=== PATIENT | female | born 1990 | race Caucasian/White ===

== ENCOUNTER 2016-09-18 13:13 | Emergency (ER) | payer OTHER ==
[2016-09-18] MEDS ORDERED: IBUPROFEN 800 MG TAB As Ordered ONE (13:50)
--- NOTE | 2016-09-18 14:15 | REP ---
Clinical: Chest pain. Comparison: none. Technique: PA and lateral. Findings: The mediastinum and cardiac silhouette are normal. The lung villasenor are clear and without acute consolidation, effusion, or pneumothorax. The skeletal structures are intact and normal. Impression: 1. No acute cardiopulmonary process. Signed by Tristan Jarrell MD 09/18/2016 02:06 P
--- NOTE | 2016-09-18 14:44 | EDDOCDS ---
Nurse's Notes [facility] Name: Samia De Leon Age: 26 yrs Sex: Female : 1990 Arrival Date: 09/18/2016 Time: 13:13 Bed TR8 Private MD: No Pcp Diagnosis: Chest pain, unspecified-Chest Wall Pain Presentation: 09/18 13:16 Presenting complaint: Patient states: Substernal chest pain began a week ago. Aspirin mlb1 was not taken prior to arrival. Adult Sepsis Screening: The patient does not have new or worsening altered mentation. Patient's respiratory rate is less than 22. Systolic blood pressure is greater than 100. Patient has a qSOFA score of 0- Negative Sepsis Screen. Suicide/Homicide risk assessment- the patient denies having any suicidal and/or homicidal ideations and does not present with any other emotional, behavioral or mental health complaints. 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 Transition of care: patient was not received from another setting of care. 13:16 Acuity: CHRISTIANO Level 3 mlb1 13:16 Method Of Arrival: Walkin/Carried/Asstd mlb1 Triage Assessment: 13:18 General: Appears in no apparent distress, Behavior is appropriate for age, cooperative. mlb1 Pain: Location: mid-sternal area Pain currently is 4 out of 10 on a pain scale. HIV screening NA for this visit Offered previously. Historical: - Allergies: codeine (Hives); - Home Meds: 1. BCP 1 tab once daily - PMHx: none; - PSHx: none; - Social history: Smoking status: Patient uses tobacco products, light tobacco smoker. No barriers to communication noted, The patient speaks fluent Palestinian, Speaks appropriately for age. - Family history: Not pertinent. - : The pt / caregiver states he / she is not on anticoagulants. Home medication list is obtained from the patient. - Exposure Risk Screening:: None identified. Screenin:41 Screening information is obtained from the patient. Fall risk: No risks identified. ms18 Assistance ADL's: requires no assistance with activities of daily living. Abuse/DV Screen: The patient / caregiver reports he/she is: not in a situation that causes fear, pain or injury. Nutritional screening: No deficits noted. Advance Directives: There is no living will. home support is adequate. Assessment: 14:41 General: Appears in no apparent distress, comfortable, Behavior is appropriate for age, ms18 cooperative, pleasant. Pain: Location: chest and mid-sternal area Pain currently is 4 out of 10 on a pain scale. Neurological: Level of Consciousness is awake, alert, obeys commands, Oriented to person, place, time. Cardiovascular: Capillary refill < 3 seconds Heart tones S1 S2 Rhythm is sinus rhythm. Respiratory: No deficits noted. Derm: Skin is pink, warm & dry. Vital Signs: 13:15 BP 155 / 79; Pulse 87; Resp 16; Temp 97.3; Pulse Ox 100% ; Weight 90.72 kg; Height 5 cmb ft. 6 in. (167.64 cm); Pain 4/10; 14:41 BP 145 / 87; Pulse 84; Resp 18; Temp 98; Pulse Ox 99% ; Pain 4/10; ms18 13:15 Body Mass Index 32.28 (90.72 kg, 167.64 cm) cmb Vitals: 13:15 Log In Time: September 18, 2016 at 13:13. cmb ED Course: 13:14 Patient visited by Seble Burciaga. cmb 13:14 Patient moved to Waiting cmb 13:15 No Pcp is Private Physician. cmb 13:16 Patient visited by Omar Hendrickson, RN. mlb1 13:16 Patient moved to Pre RCE cmb 13:17 Triage Initiated mlb1 13:18 Patient visited by Omar Hendrickson, RN. mlb1 13:18 Patient moved to Triage 1 mlb1 13:22 Bradford Fernández PA-C is PHCP. dk1 13:22 Phillip Garcia MD is Attending Physician. dk1 13:22 Patient visited by Bradford Fernández PA-C. dk1 13:29 Patient moved to PD2 / ms18 13:45 Patient visited by Raisa Sommer. sew 13:45 EKG done. (by ED staff). Reviewed by Bradford Fernández PA-C. sew 13:52 Patient visited by Raisa Sommer. sew 14:02 D-Dimer Quant Sent. dem1 14:27 Chest, 2 View (pa\E\lat) Returned. EDMS 14:29 [place] [place] was scanned into [employer] and attached to record. mm15 14:31 Patient name changed from Samia\S\\S\Potter\S\ to Samia\S\ \S\Potter. EDMS 14:33 [facility] is Referral Physician. dk1 14:41 Patient moved to TR8 ms18 14:41 The patient / caregiver is instructed regarding the plan of care and ED course. Patient ms18 has correct armband on for positive identification. Cardiac monitoring not applicable on this patient. 14:41 No IV's were initiated during this patient's visit. No procedures done that require ms18 assistance. Administered Medications: 13:52 Drug: Ibuprofen 800 mg [ibuprofen 800 mg tablet (1 tabs)] Route: PO; ms18 Order Results: Lab Order: D-Dimer Quant; SPEC'M 09/18/16 14:00 Test: D-DIMER QUANT; Value: < 270.0; Range: <500; Units: ng/ml; Status: F Radiology Order: Chest, 2 View (pa\E\lat) Test: Chest, 2 View (pa\E\lat) REASON FOR EXAMINATION: Chest Pain; Clinical: Chest pain.; ; Comparison: none.; ; Technique: PA and lateral.; ; Findings:; The mediastinum and cardiac silhouette are normal. The lung villasenor are clear and; without acute consolidation, effusion, or pneumothorax. The skeletal structures; are intact and normal.; ; Impression:; 1. No acute cardiopulmonary process.; ; ; Signed by; Tristan Jarrell MD 09/18/2016 02:06 P; Outcome: 14:34 Discharge ordered by Provider. dk1 14:41 Discharge Assessment: Patient awake, alert and oriented x 3. No cognitive and/or ms18 functional deficits noted. Patient verbalized understanding of disposition instructions. patient administered narcotics - no. The following High Risk Discharge criteria are identified: None. Discharged to home ambulatory. Condition: good Condition: stable Condition: improved. Discharge instructions given to patient, Instructed on discharge instructions, follow up and referral plans. medication usage, Demonstrated understanding of instructions, medications, Pt was receptive of discharge instructions/ teaching. Prescriptions given X 2. No special radiology studies were completed. Property sent home with patient. :Personal belongings accompany Pt. 14:44 Patient left the ED. ms18 Signatures: Dispatcher [employer] Omar Albright RN RN mlb1 Bradford Fernández, PA-C PA-C adri1 Patricia Foote1 Seble Burciaga Sarah sew McGrath, Marlynn mm15 Candelaria Gallegos,CAITIE RN ms18 MTDD
--- NOTE | 2016-09-18 14:44 | EDDOCDS ---
Physician Documentation [facility] Name: Samia De Leon Age: 26 yrs Sex: Female : 1990 Arrival Date: 09/18/2016 Time: 13:13 Bed TR8 Private MD: No Pcp Disposition: 09/18/16 14:34 Discharged to Home/Self Care. Impression: Chest pain, unspecified - Chest Wall Pain. - Condition is Stable. - Discharge Instructions: Chest Wall Pain. - Prescriptions for Ibuprofen 800 mg Oral Tablet - take 1 tablet by ORAL route every 8 hours As needed take with food; 30 tablet. Tylenol 325 mg Oral Tablet - take 2 tablet by ORAL route every 6 hours as needed; 1 bottle. - Medication Reconciliation, Local Pharmacy Hours form. - [facility]; When: 1 - 2 days; Reason: Recheck today's complaints, Continuance of care. Follow up: Emergency Department; When: As needed; Reason: Worsening of conditions. - Problem is new. - Symptoms have improved. Historical: - Allergies: codeine (Hives); - Home Meds: 1. BCP 1 tab once daily - PMHx: none; - PSHx: none; - Social history: Smoking status: Patient uses tobacco products, light tobacco smoker. No barriers to communication noted, The patient speaks fluent Iraqi, Speaks appropriately for age. - Family history: Not pertinent. - : The pt / caregiver states he / she is not on anticoagulants. Home medication list is obtained from the patient. - Exposure Risk Screening:: None identified. Vital Signs: 09/18 13:15 BP 155 / 79; Pulse 87; Resp 16; Temp 97.3; Pulse Ox 100% ; Weight 90.72 kg / 200 lbs; cmb Height 5 ft. 6 in. (167.64 cm); Pain 4/10; 14:41 BP 145 / 87; Pulse 84; Resp 18; Temp 98; Pulse Ox 99% ; Pain 4/10; ms18 13:15 Body Mass Index 32.28 (90.72 kg, 167.64 cm) cmb MDM: 13:25 Ibuprofen 800 mg PO once ordered. dk1 13:25 ECG WITH READING ER PHYS+CARDIAG ordered. EDMS 13:26 Chest, 2 View (pa\E\lat) Ordered. EDMS 13:27 D-Dimer Quant Ordered. EDMS 14:21 Financial registration complete. mm15 14:29 [facility] Payment Agreement was scanned into [employer] and attached to record. mm15 14:29 D-Dimer Quant Reviewed. dk1 14:29 Chest, 2 View (pa\E\lat) Reviewed. dk1 Administered Medications: 13:52 Drug: Ibuprofen 800 mg [ibuprofen 800 mg tablet (1 tabs)] Route: PO; ms18 Signatures: Dispatcher [employer] EDMS Omar Hendrickson RN RN mlb1 Bradford Fernández, PA-C PA-C dk1 Nikole Richardson mm15 Candelaria Gallegos RN RN ms18 The chart was reviewed and I authenticate all verbal orders and agree with the evaluation and treatment provided.Attachments: 14:29 [facility] Payment Agreement mm15 MTDD
--- NOTE | 2016-09-18 18:09 | ECGEPIP ---
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
--- NOTE | 2016-09-20 15:45 | EDDOCDS ---
Physician Documentation [facility] Name: Samia De Leon Age: 26 yrs Sex: Female : 1990 Arrival Date: 09/18/2016 Time: 13:13 Bed TR8 Private MD: No Pcp Disposition: 09/18/16 14:34 Discharged to Home/Self Care. Impression: Chest pain, unspecified - Chest Wall Pain. - Condition is Stable. - Discharge Instructions: Chest Wall Pain. - Prescriptions for Ibuprofen 800 mg Oral Tablet - take 1 tablet by ORAL route every 8 hours As needed take with food; 30 tablet. Tylenol 325 mg Oral Tablet - take 2 tablet by ORAL route every 6 hours as needed; 1 bottle. - Medication Reconciliation, Local Pharmacy Hours form. - Follow up: [facility]; When: 1 - 2 days; Reason: Recheck today's complaints, Continuance of care. Follow up: Emergency Department; When: As needed; Reason: Worsening of conditions. - Problem is new. - Symptoms have improved. Historical: - Allergies: codeine (Hives); - Home Meds: 1. BCP 1 tab once daily - PMHx: none; - PSHx: none; - Social history: Smoking status: Patient uses tobacco products, light tobacco smoker. No barriers to communication noted, The patient speaks fluent Colombian, Speaks appropriately for age. - Family history: Not pertinent. - : The pt / caregiver states he / she is not on anticoagulants. Home medication list is obtained from the patient. - Exposure Risk Screening:: None identified. Vital Signs: 09/18 13:15 BP 155 / 79; Pulse 87; Resp 16; Temp 97.3; Pulse Ox 100% ; Weight 90.72 kg / 200 lbs; cmb Height 5 ft. 6 in. (167.64 cm); Pain 4/10; 14:41 BP 145 / 87; Pulse 84; Resp 18; Temp 98; Pulse Ox 99% ; Pain 4/10; ms18 13:15 Body Mass Index 32.28 (90.72 kg, 167.64 cm) cmb MDM: 13:25 Ibuprofen 800 mg PO once ordered. dk1 13:25 ECG WITH READING ER PHYS+CARDIAG ordered. EDMS 13:26 Chest, 2 View (pa\E\lat) Ordered. EDMS 13:27 D-Dimer Quant Ordered. EDMS 14:21 Financial registration complete. mm15 14:29 [facility] Payment Agreement was scanned into [employer] and attached to record. mm15 14:29 D-Dimer Quant Reviewed. dk1 14:29 Chest, 2 View (pa\E\lat) Reviewed. dk1 16:57 T-Sheet-- Draft Copy was scanned into [employer] and attached to record. klr Administered Medications: 13:52 Drug: Ibuprofen 800 mg [ibuprofen 800 mg tablet (1 tabs)] Route: PO; ms18 Signatures: Dispatcher [employer] EDMS Omar Hendrickson RN RN mlb1 Bradford Fernández, PA-C PA-C dk1 Nikole Richardson mm15 Candelaria Gallegos RN RN ms18 Marija Mayers klr The chart was reviewed and I authenticate all verbal orders and agree with the evaluation and treatment provided.Attachments: 14:29 [facility] Payment Agreement mm15 16:57 T-Sheet-- Draft Copy klr Chart Complete MTDD
--- NOTE | 2016-09-20 15:45 | EDDOCDS ---
Physician Documentation [facility] Name: Samia De Leon Age: 26 yrs Sex: Female : 1990 Arrival Date: 09/18/2016 Time: 13:13 Bed TR8 Private MD: No Pcp Disposition: 09/18/16 14:34 Discharged to Home/Self Care. Impression: Chest pain, unspecified - Chest Wall Pain. - Condition is Stable. - Discharge Instructions: Chest Wall Pain. - Prescriptions for Ibuprofen 800 mg Oral Tablet - take 1 tablet by ORAL route every 8 hours As needed take with food; 30 tablet. Tylenol 325 mg Oral Tablet - take 2 tablet by ORAL route every 6 hours as needed; 1 bottle. - Medication Reconciliation, Local Pharmacy Hours form. - Follow up: [facility]; When: 1 - 2 days; Reason: Recheck today's complaints, Continuance of care. Follow up: Emergency Department; When: As needed; Reason: Worsening of conditions. - Problem is new. - Symptoms have improved. Historical: - Allergies: codeine (Hives); - Home Meds: 1. BCP 1 tab once daily - PMHx: none; - PSHx: none; - Social history: Smoking status: Patient uses tobacco products, light tobacco smoker. No barriers to communication noted, The patient speaks fluent Uruguayan, Speaks appropriately for age. - Family history: Not pertinent. - : The pt / caregiver states he / she is not on anticoagulants. Home medication list is obtained from the patient. - Exposure Risk Screening:: None identified. Vital Signs: 09/18 13:15 BP 155 / 79; Pulse 87; Resp 16; Temp 97.3; Pulse Ox 100% ; Weight 90.72 kg / 200 lbs; cmb Height 5 ft. 6 in. (167.64 cm); Pain 4/10; 14:41 BP 145 / 87; Pulse 84; Resp 18; Temp 98; Pulse Ox 99% ; Pain 4/10; ms18 13:15 Body Mass Index 32.28 (90.72 kg, 167.64 cm) cmb MDM: 13:25 Ibuprofen 800 mg PO once ordered. dk1 13:25 ECG WITH READING ER PHYS+CARDIAG ordered. EDMS 13:26 Chest, 2 View (pa\E\lat) Ordered. EDMS 13:27 D-Dimer Quant Ordered. EDMS 14:21 Financial registration complete. mm15 14:29 [facility] Payment Agreement was scanned into [employer] and attached to record. mm15 14:29 D-Dimer Quant Reviewed. dk1 14:29 Chest, 2 View (pa\E\lat) Reviewed. dk1 16:57 T-Sheet-- Draft Copy was scanned into [employer] and attached to record. klr Administered Medications: 13:52 Drug: Ibuprofen 800 mg [ibuprofen 800 mg tablet (1 tabs)] Route: PO; ms18 Signatures: Dispatcher [employer] EDMS Omar Hendrickson RN RN mlb1 Bradford Fernández, PA-C PA-C dk1 Nikole Richardson mm15 Candelaria Gallegos RN RN ms18 Marija Mayers klr The chart was reviewed and I authenticate all verbal orders and agree with the evaluation and treatment provided.Attachments: 14:29 [facility] Payment Agreement mm15 16:57 T-Sheet-- Draft Copy klr Chart Complete MTDD
--- NOTE | 2016-09-20 15:45 | EDDOCDS ---
Nurse's Notes [facility] Name: Cherrie De Leon Age: 26 yrs Sex: Female : 1990 Arrival Date: 09/18/2016 Time: 13:13 Bed TR8 Private MD: No Pcp Diagnosis: Chest pain, unspecified-Chest Wall Pain Presentation: 09/18 13:16 Presenting complaint: Patient states: Substernal chest pain began a week ago. Aspirin mlb1 was not taken prior to arrival. Adult Sepsis Screening: The patient does not have new or worsening altered mentation. Patient's respiratory rate is less than 22. Systolic blood pressure is greater than 100. Patient has a qSOFA score of 0- Negative Sepsis Screen. Suicide/Homicide risk assessment- the patient denies having any suicidal and/or homicidal ideations and does not present with any other emotional, behavioral or mental health complaints. 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 Transition of care: patient was not received from another setting of care. 13:16 Acuity: CHRISTIANO Level 3 mlb1 13:16 Method Of Arrival: Walkin/Carried/Asstd mlb1 Triage Assessment: 13:18 General: Appears in no apparent distress, Behavior is appropriate for age, cooperative. mlb1 Pain: Location: mid-sternal area Pain currently is 4 out of 10 on a pain scale. HIV screening NA for this visit Offered previously. Historical: - Allergies: codeine (Hives); - Home Meds: 1. BCP 1 tab once daily - PMHx: none; - PSHx: none; - Social history: Smoking status: Patient uses tobacco products, light tobacco smoker. No barriers to communication noted, The patient speaks fluent Togolese, Speaks appropriately for age. - Family history: Not pertinent. - : The pt / caregiver states he / she is not on anticoagulants. Home medication list is obtained from the patient. - Exposure Risk Screening:: None identified. Screenin:41 Screening information is obtained from the patient. Fall risk: No risks identified. ms18 Assistance ADL's: requires no assistance with activities of daily living. Abuse/DV Screen: The patient / caregiver reports he/she is: not in a situation that causes fear, pain or injury. Nutritional screening: No deficits noted. Advance Directives: There is no living will. home support is adequate. Assessment: 14:41 General: Appears in no apparent distress, comfortable, Behavior is appropriate for age, ms18 cooperative, pleasant. Pain: Location: chest and mid-sternal area Pain currently is 4 out of 10 on a pain scale. Neurological: Level of Consciousness is awake, alert, obeys commands, Oriented to person, place, time. Cardiovascular: Capillary refill < 3 seconds Heart tones S1 S2 Rhythm is sinus rhythm. Respiratory: No deficits noted. Derm: Skin is pink, warm & dry. Vital Signs: 13:15 BP 155 / 79; Pulse 87; Resp 16; Temp 97.3; Pulse Ox 100% ; Weight 90.72 kg; Height 5 cmb ft. 6 in. (167.64 cm); Pain 4/10; 14:41 BP 145 / 87; Pulse 84; Resp 18; Temp 98; Pulse Ox 99% ; Pain 4/10; ms18 13:15 Body Mass Index 32.28 (90.72 kg, 167.64 cm) cmb Vitals: 13:15 Log In Time: September 18, 2016 at 13:13. cmb ED Course: 13:14 Patient visited by Seble Burciaga. cmb 13:14 Patient moved to Waiting cmb 13:15 No Pcp is Private Physician. cmb 13:16 Patient visited by Oamr Hendrickson, RN. mlb1 13:16 Patient moved to Pre RCE cmb 13:17 Triage Initiated mlb1 13:18 Patient visited by Omar Hendrickson, RN. mlb1 13:18 Patient moved to Triage 1 mlb1 13:22 Trina Fernández PA-C is PHCP. dk1 13:22 Phillip Garcia MD is Attending Physician. dk1 13:22 Patient visited by Trina Fernández PA-C. dk1 13:29 Patient moved to PD2 / ms18 13:45 Patient visited by Raisa Sommer. sew 13:45 EKG done. (by ED staff). Reviewed by Trina Fernández PA-C. sew 13:52 Patient visited by Raisa Sommer. sew 14:02 D-Dimer Quant Sent. dem1 14:27 Chest, 2 View (pa\E\lat) Returned. EDMS 14:29 [facility] [place] was scanned into [employer] and attached to record. mm15 14:31 Patient name changed from Cherrie\S\\S\Potter\S\ to Cherrie\S\ \S\Potter. EDMS 14:33 [facility] is Referral Physician. dk1 14:41 Patient moved to TR8 ms18 14:41 The patient / caregiver is instructed regarding the plan of care and ED course. Patient ms18 has correct armband on for positive identification. Cardiac monitoring not applicable on this patient. 14:41 No IV's were initiated during this patient's visit. No procedures done that require ms18 assistance. 16:57 T-Sheet-- Draft Copy was scanned into [employer] and attached to record. klr 18:38 EKG-ADULT Returned. EDMS Administered Medications: 13:52 Drug: Ibuprofen 800 mg [ibuprofen 800 mg tablet (1 tabs)] Route: PO; ms18 Order Results: Lab Order: D-Dimer Quant; SPEC'M 09/18/16 14:00 Test: D-DIMER QUANT; Value: < 270.0; Range: <500; Units: ng/ml; Status: F Radiology Order: Chest, 2 View (pa\E\lat) Test: Chest, 2 View (pa\E\lat) REASON FOR EXAMINATION: Chest Pain; Clinical: Chest pain.; ; Comparison: none.; ; Technique: PA and lateral.; ; Findings:; The mediastinum and cardiac silhouette are normal. The lung villasenor are clear and; without acute consolidation, effusion, or pneumothorax. The skeletal structures; are intact and normal.; ; Impression:; 1. 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 dk1 14:41 Discharge Assessment: Patient awake, alert and oriented x 3. No cognitive and/or ms18 functional deficits noted. Patient verbalized understanding of disposition instructions. patient administered narcotics - no. The following High Risk Discharge criteria are identified: None. Discharged to home ambulatory. Condition: good Condition: stable Condition: improved. Discharge instructions given to patient, Instructed on discharge instructions, follow up and referral plans. medication usage, Demonstrated understanding of instructions, medications, Pt was receptive of discharge instructions/ teaching. Prescriptions given X 2. No special radiology studies were completed. Property sent home with patient. :Personal belongings accompany Pt. 14:44 Patient left the ED. ms18 Signatures: Dispatcher [employer] EDMS Omar Hendrickson RN RN mlb1 Trina Fernández, PA-C PA-C dk1 Patricia Foote1 Seble Burciaga Sarah sew McGrath, Marlynn mm15 Candelaria Gallegos,CAITIE RN ms18 Marija Mayers Chart Complete MTDD
== END 2016-09-18 14:44 | disposition home or self-care (01) ==
LOC: M ED 13:13
DX: R07.89 Other chest pain (principal); Z88.5 Allergy status to narcotic agent; F17.210 Nicotine dependence, cigarettes, uncomplicated

== ENCOUNTER 2017-09-02 11:11 | Emergency (ER) | payer OTHER ==
[2017-09-02] MEDS: NORCO, ANEXSIA 5/325MG TABLET (HYDROcodone/ACETAMINOPHEN) PO (12:46)
== END 2017-09-02 12:59 | disposition home or self-care (01) ==
LOC: M ED 11:11
DX: K04.7 Periapical abscess without sinus (principal); K02.9 Dental caries, unspecified; L03.211 Cellulitis of face; F17.200 Nicotine dependence, unspecified, uncomplicated; Z88.5 Allergy status to narcotic agent
CPT/HCPCS: 99282

== ENCOUNTER 2018-07-06 16:12 | Emergency (ER) | payer OTHER | END 2018-07-06 17:00 | disposition home or self-care (01) | LOC: M ED 16:12 | DX: K04.7 Periapical abscess without sinus (principal); R68.84 Jaw pain; K08.89 Other specified disorders of teeth and supporting structures; Z79.899 Other long term (current) drug therapy; Z88.5 Allergy status to narcotic agent | CPT/HCPCS: 99282 ==

== ENCOUNTER 2019-09-20 10:18 | Emergency (ER) | payer MEDICAID, OTHER ==
[~2019-09-20] VITALS: Ht 167.6 cm; Wt 99.7 kg
[~2019-09-20 10:18] MED LIST: CLEO300C2 PO; HYDR-3715 PO; LEVOTAB18; PENI500T PO
[2019-09-20] MEDS ORDERED: ONDANSETRON 4 MG ORAL DISINTEGRATING TAB (Q0162 PER 1MG) PO ONE (10:45)
[2019-09-20] MEDS ORDERED: PANTOPRAZOLE 40MG TAB (PROTONIX) PO ONE (10:45)
[2019-09-20 10:58] LABS: BASO % 0.3 % (0.0-1.0); EOS # 0.1 10^3/uL (0.0-0.5); EOS % 0.6 % (0.0-3.0); HEMOGLOBIN 13.8 g/dl (12.0-15.5); LYMPH # 2.5 10^3/uL (1.5-5.0); LYMPH % 27.7 % (24.0-44.0); MEAN CORPUSCULAR HEMOGLOBIN 27.9 pg (27.0-33.0); MEAN CORPUSCULAR HGB CONC 32.9 g/dl (32.0-36.5); MONO # 0.7 10^3/uL (0.0-0.8); MONO % 8.2 % (0.0-5.0); NEUTROPHILS # 5.6 10^3/uL (1.5-8.5); NEUTROPHILS % 62.8 % (36.0-66.0); PLATELET COUNT, AUTOMATED 177 10^3/uL (150-450); RED BLOOD COUNT 4.94 10^6/uL (4.00-5.40); WHITE BLOOD COUNT 8.9 10^3/uL (4.0-10.0)
--- NOTE | 2019-09-20 11:20 | REP ---
CHEST, TWO VIEWS: There is no evidence of acute infiltrate. No pleural effusion is seen. The heart is normal in size. The mediastinal silhouette is unremarkable. The visualized osseous structures are intact. IMPRESSION: No acute pulmonary disease. Electronically Signed by Hugo Mart MD 09/20/2019 02:43 P
[2019-09-20 11:27] LABS: INFLUENZA A AMPLIFICATION POSITIVE (NEGATIVE); INFLUENZA B AMPLIFICATION NEGATIVE (NEGATIVE)
[2019-09-20 11:28] LABS: BLOOD UREA NITROGEN 19 MG/DL (7-18); CALCIUM LEVEL 8.9 MG/DL (8.5-10.1); CARBON DIOXIDE LEVEL 26 MEQ/L (21-32); CHLORIDE LEVEL 109 MEQ/L (98-107); CREATININE FOR GFR 0.79 MG/DL (0.55-1.30); GLOMERULAR FILTRATION RATE > 60.0 (>60); GLUCOSE, FASTING 100 MG/DL (70-100); POTASSIUM SERUM 3.7 MEQ/L (3.5-5.1); SODIUM LEVEL 141 MEQ/L (136-145)
[2019-09-20 11:53] VITALS: BP 131/79
[2019-09-20] MEDS ORDERED: ONDA4TAB6 PO (12:00)
[2019-09-20] MEDS ORDERED: MUCI600T31 PO (12:00)
[2019-09-20] MEDS ORDERED: BENZ200C70 PO (12:00)
[2019-09-20] MEDS ORDERED: PROT20TA11 PO (12:00)
== END 2019-09-20 12:07 | disposition home or self-care (01) ==
LOC: M ED 10:18
DX: J09.X9 Influenza due to identified novel influenza A virus with other manifestations (principal); K92.0 Hematemesis; F17.200 Nicotine dependence, unspecified, uncomplicated; Z79.899 Other long term (current) drug therapy; Z88.5 Allergy status to narcotic agent
CPT/HCPCS: 36415; 71046; 80048; 85025; 87502; 99284; Q0162

== ENCOUNTER 2020-12-16 08:36 | Outpatient (RCR) | payer OTHER ==
[~2020-12-16 08:36] MED LIST changes: +BENZ200C70 PO; +MUCI600T31 PO; +ONDA4TAB6 PO; +PROT20TA11 PO
== END 2020-12-22 ==
LOC: M OT 08:36
PROVIDERS: ATTEND Orthopaedic Surgery
DX: M65.841 Other synovitis and tenosynovitis, right hand (principal)

== ENCOUNTER 2021-01-16 10:30 | Outpatient (RCR) | payer OTHER | END 2021-01-21 | LOC: M OT 10:30 | PROVIDERS: ATTEND Orthopaedic Surgery | DX: M65.841 Other synovitis and tenosynovitis, right hand (principal) ==

== ENCOUNTER → 2024-08-10 | Outpatient (REF) | payer OTHER ==
[~2024-08-10] MED LIST changes: +ONDA-282 PO; -ONDA4TAB6 PO
== END ==
LOC: M PLALAB 09:53
PROVIDERS: ATTEND Nurse Practitioner Family
DX: Z53.9 Procedure and treatment not carried out, unspecified reason (principal)

== ENCOUNTER → 2024-08-17 | Outpatient (CLI) | payer OTHER ==
[2024-08-17 16:55] LABS: HEMATOCRIT 37.9 % (36.0-47.0); HEMOGLOBIN 12.5 g/dl (12.0-15.5); MEAN CORPUSCULAR HEMOGLOBIN 30.7 pg (27.0-33.0); MEAN CORPUSCULAR VOLUME 93.1 fl (80.0-96.0); PLATELET COUNT, AUTOMATED 180 10^3/uL (150-450); RED BLOOD COUNT 4.07 10^6/uL (4.00-5.40)
[2024-08-17 17:42] LABS: HIV 1&2 SCREEN NEGATIVE (NEGATIVE)
[2024-08-17 17:50] LABS: HEPATITIS C VIRUS ABY INDEX < 0.02 INDEX (<0.8)
[2024-08-17 18:13] LABS: GC DNA AMPLIFICATION NEGATIVE (NEGATIVE)
== END ==
LOC: M PLALAB 11:49
PROVIDERS: ATTEND Nurse Practitioner Family
DX: Z34.80 Encounter for supervision of other normal pregnancy, unspecified trimester (principal)

== ENCOUNTER → 2024-10-05 | Outpatient (CLI) | payer OTHER | LOC: M WHC 07:30 | PROVIDERS: ATTEND Nurse Practitioner Family | DX: Z34.82 Encounter for supervision of other normal pregnancy, second trimester (principal); Z3A.18 18 weeks gestation of pregnancy ==

== ENCOUNTER → 2024-12-07 | Outpatient (CLI) | payer OTHER ==
[2024-12-07 11:02] LABS: HEMATOCRIT 34.8 % (36.0-47.0); HEMOGLOBIN 11.3 g/dl (12.0-15.5); MEAN CORPUSCULAR HEMOGLOBIN 30.3 pg (27.0-33.0); MEAN CORPUSCULAR HGB CONC 32.5 g/dl (32.0-36.5); MEAN CORPUSCULAR VOLUME 93.3 fl (80.0-96.0); PLATELET COUNT, AUTOMATED 199 10^3/uL (150-450); RED BLOOD COUNT 3.73 10^6/uL (4.00-5.40); WHITE BLOOD COUNT 10.5 10^3/uL (4.0-10.0)
[2024-12-07 11:06] LABS: GLUCOSE CHALLENGE TEST 1 HOUR 81 MG/DL (LESS THAN 140)
[2024-12-07 11:36] LABS: HIV 1&2 SCREEN NEGATIVE (NEGATIVE)
[2024-12-07 11:44] LABS: HEPATITIS C VIRUS ABY INDEX 0.15 INDEX (<0.8)
[2024-12-07 13:24] LABS: Trichomonas vaginalis (AMP) NOT DETECTED (NEGATIVE)
[2024-12-07 13:48] LABS: GC DNA AMPLIFICATION NEGATIVE (NEGATIVE)
== END ==
LOC: M PLALAB 07:21
PROVIDERS: ATTEND Nurse Practitioner Family
DX: Z34.80 Encounter for supervision of other normal pregnancy, unspecified trimester (principal)

== ENCOUNTER → 2025-02-11 | Outpatient (REF) | payer OTHER ==
[~2025-02-11] MED LIST changes: +MULTTAB20 PO; +NICO1DIS12 TOP
== END ==
LOC: M PLALAB 10:34
PROVIDERS: ATTEND Advanced Practice Midwife
DX: Z34.03 Encounter for supervision of normal first pregnancy, third trimester (principal); Z3A.35 35 weeks gestation of pregnancy

== ENCOUNTER → 2025-02-20 | Outpatient (REF) | payer OTHER ==
[2025-02-20 18:29] LABS: PLATELET COUNT, AUTOMATED 200 10^3/uL (150-450)
[2025-02-20 19:02] LABS: TOTAL PROTEIN,RANDOM URINE 17.6 MG/DL (0.0-14.0)
[2025-02-20 19:04] LABS: LDH LACTATE DEHYDROGENASE 181 U/L (120-246)
[2025-02-20 19:05] LABS: ALT/SGPT 17 U/L (7.0-40); AST/SGOT 18 U/L (<34); CREATININE FOR GFR 0.69 MG/DL (0.55-1.30); GLOMERULAR FILTRATION RATE > 90.0 (>60)
== END ==
LOC: M PLALAB 16:46
PROVIDERS: ATTEND Advanced Practice Midwife
DX: Z34.83 Encounter for supervision of other normal pregnancy, third trimester (principal)

== ENCOUNTER 2025-03-08 10:49 | Inpatient (IN) | payer OTHER ==
[2025-03-08] VITALS (7 sets, daily range): BP systolic 120–160; BP diastolic 72–89
[~2025-03-08] VITALS: Ht 167.6 cm; Wt 105.5 kg
[2025-03-08] MEDS ORDERED: HOME MED LIST COMPLETE! XX SCH (11:15)
[2025-03-08] MEDS: LACTATED RINGER'S 1000 ML IV STA (11:18)
[2025-03-08] MEDS ORDERED: OXYTOCIN DRIP 30 UNITS in IV 1 EA IV PRN (11:20)
[2025-03-08] MEDS ORDERED: CARBOPROST TROMETHAMINE 250 MCG/ML AMP IM PRN (11:20)
[2025-03-08] MEDS ORDERED: METHYLERGONOVINE MALEATE 0.2 MG/ML 1 ML VIAL IM PRN (11:20)
[2025-03-08] MEDS ORDERED: TRANEXAMIC ACID INJection 1,000 MG in NS 100 ML IV PRN (11:20)
[2025-03-08 12:40] LABS: TOTAL PROTEIN,RANDOM URINE 25.2 MG/DL (0.0-14.0)
[2025-03-08] MEDS: miSOPROStol 50 MCG 1/2 TABLET PO SCH (14:34)
[2025-03-08 14:48] LABS: PLATELET COUNT, AUTOMATED 202 10^3/uL (150-450)
[2025-03-08 15:13] LABS: LDH LACTATE DEHYDROGENASE 189 U/L (120-246)
[2025-03-08 15:14] LABS: ALT/SGPT 19 U/L (7.0-40); AST/SGOT 19 U/L (<34); CREATININE FOR GFR 0.61 MG/DL (0.55-1.30); GLOMERULAR FILTRATION RATE > 90.0 (>60)
[2025-03-08 15:42] LABS: HIV 1&2 SCREEN NEGATIVE (NEGATIVE)
[2025-03-08 15:50] LABS: HEPATITIS C VIRUS ABY INDEX < 0.02 INDEX (<0.8)
[2025-03-08] MEDS: OXYTOCIN DRIP 30 UNITS in IV 1 EA IV SCH (23:11)
[2025-03-08] MEDS: LR 1,000 ML IV SCH (23:11)
[2025-03-09] MEDS: ONDANSETRON 4MG 2ML VIAL IV PRN (02:15)
[2025-03-09] MEDS: LIDOCAINE 1% MDV 20 ML VIAL INFIL PRN (03:22)
[2025-03-09 04:50] VITALS: BP 140/79; O2SAT 100
[2025-03-09 06:00] VITALS: BP 140/76; O2SAT 96
[2025-03-09] MEDS ORDERED: ACETAMINOPHEN 325 MG TAB PO PRN (07:25)
[2025-03-09] MEDS ORDERED: ANUSOL HC CREAM 30 GM TOP PRN (07:25)
[2025-03-09] MEDS ORDERED: DOCUSATE SODIUM 100 MG CAPSULE PO PRN (07:25)
[2025-03-09] MEDS ORDERED: CALCIUM CARBONATE 500 MG CHEW U/D PO PRN (07:25)
[2025-03-09] MEDS ORDERED: DIBUCAINE 1% OINTMENT 30 GM TOP PRN (07:25)
[2025-03-09] MEDS ORDERED: METHYLERGONOVINE MALEATE 0.2 MG TAB PO PRN (07:25)
[2025-03-09] MEDS ORDERED: MOM 30 ML SUSPENSION UDC PO PRN (07:25)
[2025-03-09] MEDS ORDERED: IBUPROFEN 600 MG TAB PO PRN (07:25)
[2025-03-09] MEDS ORDERED: ACETAMINOPHEN 500 MG TAB PO PRN (07:25)
[2025-03-09] MEDS ORDERED: IBUPROFEN 800 MG TAB PO PRN (07:25)
[2025-03-09] MEDS: PRENATAL VITAMINS CHEWABLE TABLET PO SCH (08:30)
[2025-03-09 18:00] VITALS: BP 147/79; O2SAT 98
[2025-03-10] MEDS: RHOGAM 300MCG (1500IU) INJ IM SCH (04:54)
[2025-03-10 06:00] VITALS: BP 130/74; O2SAT 99
[2025-03-11] MEDS ORDERED: MEASLES,MUMPS,RUBELLA VACCINE INJ (MMR-II) SC.IMMUN ONE (09:00)
== END 2025-03-10 13:20 | disposition home or self-care (01) | DRG 560 ==
LOC: M LDI 10:49 → M OBS 03-09 04:50
PROVIDERS: ADMIT Advanced Practice Midwife; ATTEND Advanced Practice Midwife
PROC: 3E0P7GC Introduction of Other Therapeutic Substance into Female Reproductive, Via Natural or Artificial Opening (ICD-10-PCS; 2025-03-08)
PROC: 10E0XZZ Delivery of Products of Conception, External Approach (ICD-10-PCS; principal; 2025-03-09)
PROC: 0KQM0ZZ Repair Perineum Muscle, Open Approach (ICD-10-PCS; 2025-03-09)
DX: O70.1 Second degree perineal laceration during delivery (principal); F17.200 Nicotine dependence, unspecified, uncomplicated; Z37.0 Single live birth; Z3A.40 40 weeks gestation of pregnancy; O99.334 Smoking (tobacco) complicating childbirth; O69.81X0 Labor and delivery complicated by cord around neck, without compression, not applicable or unspecified

== ENCOUNTER 2025-05-22 07:25 | Day surgery (SDC) | payer OTHER ==
[~2025-05-22] VITALS: Ht 167.6 cm; Wt 93.8 kg
[~2025-05-22 07:25] MED LIST changes: +ACETAMINOPHEN 1000MG/100ML IV BAG As Ordered ONE; +GLYCOPYRROLATE INJ 0.2 MG/ML 2 ML VIAL As Ordered ONE; +IBUP-354 PO; +KETOROLAC 30 MG/ML 1 ML VIAL As Ordered ONE; +LIDOCAINE 2% 100 MG/5 ML SDV (FOR ANES.) As Ordered ONE; +MIDAZOLAM INJ 2 MG/2 ML VIAL As Ordered ONE; +NICO1DIS9; +ONDANSETRON 4MG/2ML VIAL As Ordered ONE; +ROCURONIUM BROMIDE 50MG/5ML VIAL As Ordered ONE; +SUGAMMADEX SODIUM 200 MG/2 ML VIAL As Ordered ONE; +dexAMETHasone 4 MG/ML 1 ML VIAL As Ordered ONE
[2025-05-22] MEDS: LR 1,000 ML IV SCH (08:00)
[2025-05-22 08:02] LABS: PLATELET COUNT, AUTOMATED 278 10^3/uL (150-450)
[2025-05-22] MEDS ORDERED: dexmedeTOMIDine (4 MCG/ML) 200 MCG/50 ML BTL As Ordered ONE (08:43)
[2025-05-22] MEDS ORDERED: HYDROmorphone HCL 2 MG/ML 1 ML VIAL As Ordered ONE (09:36)
[2025-05-22] MEDS ORDERED: LR 1,000 ML IV SCH (10:05)
[2025-05-22] MEDS: ONDANSETRON 4MG/2ML VIAL IV PRN (10:24)
[2025-05-22] MEDS: HYDROMORPHONE HCL 0.5 MG/0.5 ML SYRINGE IV PRN (10:24)
[2025-05-22 10:45] VITALS: BP 105/66; TEMP 97; O2SAT 100
[2025-05-22] MEDS ORDERED: PERCOCET 5MG/325MG TAB PO PRN ×2 (11:00)
== END 2025-05-22 11:00 | disposition home or self-care (01) ==
LOC: M SDC 07:25
PROVIDERS: ATTEND Obstetrics & Gynecology
DX: Z30.2 Encounter for sterilization (principal); F17.210 Nicotine dependence, cigarettes, uncomplicated; Z88.5 Allergy status to narcotic agent
CPT/HCPCS: 36415; 58661; 81025; 85027; 86850; 86900; 86901; 88302; J0131; J0665; J1100; J1171; J1596; J1885; J2250; J2405; J2765; J3010